=== PATIENT | female | born 1985 | race Hispanic/Latino ===

== ENCOUNTER 2022-06-07 07:29 | Emergency (ER) | payer SELFPAY | END 2022-06-07 08:26 | disposition home or self-care (01) | LOC: ERS 07:29 | DX: R51.9 Headache, unspecified (principal); R05.9 Cough, unspecified; R09.81 Nasal congestion; Z20.822 Contact with and (suspected) exposure to COVID-19 | CPT/HCPCS: 99283; U0003; U0005 ==